=== PATIENT | female | born 1985 | race Caucasian/White ===

== ENCOUNTER → 2018-04-01 | Outpatient (REF) | payer OTHER | LOC: M SFHCLERA 20:13 | DX: R30.0 Dysuria (principal); J02.9 Acute pharyngitis, unspecified | CPT/HCPCS: 87186 ==

== ENCOUNTER → 2018-10-13 | Outpatient (REF) | payer OTHER | LOC: M SFHCLERA 20:54 | PROVIDERS: ATTEND Physician Assistant | DX: R50.9 Fever, unspecified (principal) ==

== ENCOUNTER 2019-04-10 18:00 | Emergency (ER) | payer OTHER ==
[~2019-04-10] VITALS: Ht 165.1 cm; Wt 85.3 kg
[2019-04-10] MEDS ORDERED: BUPR8SUB SL (18:46)
[2019-04-10 18:59] LABS: BASO % 0.3 % (0.0-1.0); EOS # 0.1 10^3/uL (0.0-0.5); EOS % 1.5 % (0.0-3.0); HEMATOCRIT 37.8 % (36.0-47.0); HEMOGLOBIN 12.7 g/dl (12.0-15.5); LYMPH # 1.4 10^3/uL (1.5-5.0); MEAN CORPUSCULAR HEMOGLOBIN 32.4 pg (27.0-33.0); MEAN CORPUSCULAR HGB CONC 33.6 g/dl (32.0-36.5); MEAN CORPUSCULAR VOLUME 96.4 fl (80.0-96.0); MONO # 0.5 10^3/uL (0.0-0.8); MONO % 5.6 % (0.0-5.0); NEUTROPHILS # 6.7 10^3/uL (1.5-8.5); NEUTROPHILS % 76.3 % (36.0-66.0); PLATELET COUNT, AUTOMATED 226 10^3/uL (150-450); RED BLOOD COUNT 3.92 10^6/uL (4.00-5.40); WHITE BLOOD COUNT 8.9 10^3/uL (4.0-10.0)
[2019-04-10 19:42] LABS: ALBUMIN 3.9 GM/DL (3.2-5.2); ALT/SGPT 19 U/L (12-78); BILIRUBIN,DIRECT 0.1 MG/DL (0.0-0.2); BILIRUBIN,TOTAL 0.3 MG/DL (0.2-1.0); BLOOD UREA NITROGEN 7 MG/DL (7-18); CALCIUM LEVEL 9.4 MG/DL (8.5-10.1); CARBON DIOXIDE LEVEL 27 MEQ/L (21-32); CHLORIDE LEVEL 106 MEQ/L (98-107); CREATININE FOR GFR 0.65 MG/DL (0.55-1.30); GLOMERULAR FILTRATION RATE > 60.0 (>60); GLUCOSE, FASTING 118 MG/DL (70-100); HCG, SERUM QUANTITATIVE 20698 MIU/ML; LIPASE 52 U/L (73-393); POTASSIUM SERUM 4.2 MEQ/L (3.5-5.1); SODIUM LEVEL 139 MEQ/L (136-145); TOTAL PROTEIN 7.2 GM/DL (6.4-8.2)
--- NOTE | 2019-04-10 20:48 | REPVR ---
PROCEDURE INFORMATION: Exam: US First Trimester, Transabdominal Exam date and time: 04/10/2019 8:28 PM Age: 33 years old Clinical history: complicated by abdominal or pelvic pain; Lower; First trimester; Gestational age or lmp: Unknown; ; Additional info: Pelvic cramping TECHNIQUE: Imaging protocol: Real-time transabdominal obstetrical ultrasound of the maternal pelvis and a first trimester , less than 14 weeks 0 days, with image documentation. COMPARISON: No relevant prior studies available. FINDINGS: GESTATION: Gestation: Single gestational sac within the uterus. Single fetus within the gestational sac. Fetus demonstrates diffuse subcutaneous edema. Impression Heart rate: heart rate was not detected. Placenta: Unremarkable. No subchorionic bleed. Amniotic fluid: Amniotic and chorionic fluid are normal for gestational age. BIOMETRY: Estimated gestational age: Gestational age is 10 weeks 5 days using crown-rump length versus 18 weeks one day using LMP. [place]-Rump length: [place]-rump length measures 3.8 cm. MATERNAL: Uterus: Unremarkable. Cervix: Unremarkable. Right adnexa: Unremarkable. Left adnexa: Unremarkable. Intraperitoneal: No intraperitoneal free fluid. IMPRESSION: Findings consistent with an intrauterine demise with retention of the fetus occurring at 10 weeks 5 days in this patient who was 18 weeks 1 day using LMP. Electronically signed by: Emile Joseph On 04/10/2019 20:48:29 PM
[2019-04-10 21:35] VITALS: BP 153/85
== END 2019-04-10 21:36 | disposition home or self-care (01) ==
LOC: M ED 18:00
DX: O03.9 Complete or unspecified spontaneous abortion without complication (principal); Z88.1 Allergy status to other antibiotic agents; Z79.899 Other long term (current) drug therapy

== ENCOUNTER → 2019-04-22 | Outpatient (CLI) | payer OTHER ==
[~2019-04-22] MED LIST: BUPR8SUB SL
--- NOTE | 2019-04-22 14:53 | REP ---
PELVIC ULTRASOUND: Real-time sonographic evaluation of the pelvis is performed utilizing transabdominal technique. Intrauterine gestation is again noted. Gestational sac contains a fetus with a crown-rump length of 35 mm which would correspond to an estimated gestational age of 10 weeks 3 days. However, no heart motion is identified, consistent with intrauterine demise. This is similar to the prior study of 04/10/2019. No subchorionic hemorrhage or maternal adnexal region abnormality is seen. Unreviewed
== END ==
LOC: M RAD 13:53
PROVIDERS: ATTEND Obstetrics & Gynecology
DX: O02.1 Missed abortion (principal); Z3A.00 Weeks of gestation of pregnancy not specified

== ENCOUNTER 2019-04-23 12:35 | Day surgery (SDC) | payer OTHER ==
[~2019-04-23] VITALS: Ht 165.1 cm; Wt 83.4 kg
[~2019-04-23 12:35] MED LIST changes: +ACETAMINOPHEN 650 MG SUPP PR ONE; +KETOROLAC 60 MG/2 ML VIAL (J1885) As Ordered ONE; +LIDOCAINE 1% MDV 20ML VIAL SQ PRN; +LIDOCAINE 2% INJ 100 MG/5 ML SDV (FOR ANES.) As Ordered ONE; +LR 1,000 ML IV ONE; +ONDANSETRON 4MG/2ML VIAL (J2405) As Ordered ONE; +PROPOFOL 200 MG/20 ML VIAL As Ordered ONE; +dexameTHASONE 4 MG/ML 1ML VIAL (J1100) As Ordered ONE
[2019-04-23] MEDS ORDERED: GLYCOPYRROLATE INJ 0.2 MG/ML 2 ML VIAL As Ordered ONE (12:43)
[2019-04-23 13:27] LABS: HEMATOCRIT 36.9 % (36.0-47.0); HEMOGLOBIN 12.3 g/dl (12.0-15.5); MEAN CORPUSCULAR HEMOGLOBIN 31.7 pg (27.0-33.0); MEAN CORPUSCULAR HGB CONC 33.3 g/dl (32.0-36.5); MEAN CORPUSCULAR VOLUME 95.1 fl (80.0-96.0); PLATELET COUNT, AUTOMATED 244 10^3/uL (150-450); RED BLOOD COUNT 3.88 10^6/uL (4.00-5.40); WHITE BLOOD COUNT 6.1 10^3/uL (4.0-10.0)
[2019-04-23] MEDS ORDERED: CLINDAMYCIN 900 MG in IV 1 EA IV ONE (13:30)
[2019-04-23 14:04] LABS: BLOOD UREA NITROGEN 8 MG/DL (7-18); CALCIUM LEVEL 9.8 MG/DL (8.5-10.1); CARBON DIOXIDE LEVEL 26 MEQ/L (21-32); CHLORIDE LEVEL 106 MEQ/L (98-107); GLOMERULAR FILTRATION RATE > 60.0 (>60); GLUCOSE, FASTING 90 MG/DL (70-100); HCG, SERUM QUANTITATIVE 2643 MIU/ML; SODIUM LEVEL 141 MEQ/L (136-145)
[2019-04-23] MEDS ORDERED: PROPOFOL 200 MG/20 ML VIAL As Ordered ONE (14:13)
[2019-04-23] MEDS ORDERED: MIDAZOLAM INJ 2 MG/2 ML VIAL (J2250) As Ordered ONE (14:13)
[2019-04-23] MEDS ORDERED: LIDOCAINE 2% INJ 100 MG/5 ML SDV (FOR ANES.) As Ordered ONE (14:13)
[2019-04-23] MEDS ORDERED: fentaNYL 100 MCG/2 ML INJECTION (J3010) As Ordered ONE (14:14)
[2019-04-23] MEDS ORDERED: KETOROLAC 60 MG/2 ML VIAL (J1885) As Ordered ONE ×2 (14:41→15:08)
[2019-04-23] MEDS ORDERED: dexameTHASONE 4 MG/ML 1ML VIAL (J1100) As Ordered ONE (14:41)
[2019-04-23] MEDS ORDERED: ONDANSETRON 4MG/2ML VIAL (J2405) As Ordered ONE (14:41)
[2019-04-23] MEDS ORDERED: ACETAMINOPHEN 650 MG SUPP As Ordered ONE (14:44)
[2019-04-23] MEDS ORDERED: OXYTOCIN INJ 10 UNITS/ML VIAL (J2590) As Ordered ONE ×2 (14:48→14:50)
[2019-04-23] MEDS ORDERED: ePHEDrine SULFATE 25 MG/5 ML(5MG/ML) SYRINGE As Ordered ONE (14:53)
[2019-04-23] MEDS ORDERED: ACETAMINOPHEN 1000MG 100ML IV BTL (OFIRMEV) (J0131 PER 10MG) As Ordered ONE (14:54)
[2019-04-23] MEDS ORDERED: PHENYLephrine HCL 500 MCG/5 ML (100MCG/ML) SYRINGE (J2370) As Ordered ONE (14:59)
[2019-04-23] MEDS ORDERED: miSOPROStol 200 MCG TAB (S0191) As Ordered ONE (15:04)
[2019-04-23] MEDS ORDERED: METOCLOPRAMIDE INJ 10MG/2ML VIAL (J2765) IV PRN (15:30)
[2019-04-23] MEDS ORDERED: LR 1,000 ML IV SCH (15:30)
[2019-04-23] MEDS ORDERED: ONDANSETRON 4MG/2ML VIAL (J2405) IV PRN (15:30)
[2019-04-23] MEDS: oxyCODONE 5MG TAB PO PRN ×2 (15:45→18:18)
[2019-04-23] MEDS: fentaNYL 100 MCG/2 ML INJECTION (J3010) IV PRN ×2 (15:45→15:50)
[2019-04-23] MEDS ORDERED: oxyCODONE 5MG TAB As Ordered ONE (18:15)
[2019-04-23 19:20] VITALS: BP 130/76
--- NOTE | 2019-04-23 19:24 | RO ---
DATE OF PROCEDURE: 04/23/2019 PREOPERATIVE DIAGNOSIS: demise 10 weeks. POSTOPERATIVE DIAGNOSIS: demise 10 weeks. OPERATION PROPOSED: Suction curettage. OPERATION PERFORMED: Suction curettage plus cervical biopsy. ANESTHESIA: General. ESTIMATED BLOOD LOSS: 600 mL SURGEON: Dr. Castillo After adequate time-out, prepped and draped in the lithotomy position antibiotics in place as this is a prolonged demise starting back to December. Weighted speculum in at the bladder was drained for clear urine. Single-tooth tenaculum to the anterior lip of the cervix, we noticed a large endocervical polyp was present. This was biopsied off and sent off to pathology under separate cover. The uterus was then sounded depth of 16 cm dilated to a Emely 9. Curved suction curette applied. Curettage revealed placenta and parts. Uterus was curettaged til smooth. The uterus had difficulty in megan down under Pitocin and therefore she was given Cytotec 800 mg per rectum. Eventually the uterus did contract down well, continued on with Pitocin. Uterus was replaced in anatomical position well put contracted at the end of procedure. The patient is Rh positive does not require RhoGAM was sent to recovery in good condition.
[2019-04-23] MEDS ORDERED: KETOROLAC 30 MG/ML VIAL (J1885) IV PRN (21:00)
== END 2019-04-23 19:20 | disposition home or self-care (01) ==
LOC: M SDC 12:35
PROVIDERS: ATTEND Obstetrics & Gynecology
DX: O02.1 Missed abortion (principal); N84.1 Polyp of cervix uteri; F17.218 Nicotine dependence, cigarettes, with other nicotine-induced disorders; Z79.899 Other long term (current) drug therapy; Z88.1 Allergy status to other antibiotic agents; G43.909 Migraine, unspecified, not intractable, without status migrainosus
CPT/HCPCS: 36415; 59820; 80048; 84702; 85027; 86850; 86900; 86901; 88305; J0131; J1100; J1885; J2250; J2370; J2405; J2590; J3010

== ENCOUNTER → 2019-07-17 | Outpatient (REF) | payer OTHER ==
[~2019-07-17] MED LIST changes: -ACETAMINOPHEN 650 MG SUPP PR ONE; -KETOROLAC 60 MG/2 ML VIAL (J1885) As Ordered ONE; -LIDOCAINE 1% MDV 20ML VIAL SQ PRN; -LIDOCAINE 2% INJ 100 MG/5 ML SDV (FOR ANES.) As Ordered ONE; -LR 1,000 ML IV ONE; -ONDANSETRON 4MG/2ML VIAL (J2405) As Ordered ONE; -PROPOFOL 200 MG/20 ML VIAL As Ordered ONE; -dexameTHASONE 4 MG/ML 1ML VIAL (J1100) As Ordered ONE
[2019-07-18 21:56] LABS: CHLAMYDIA DNA AMPLIFICATION NEGATIVE (NEGATIVE); GC DNA AMPLIFICATION NEGATIVE (NEGATIVE)
== END ==
LOC: M SFHCLERA 20:12
PROVIDERS: ATTEND Physician Assistant
DX: N39.0 Urinary tract infection, site not specified (principal); N89.8 Other specified noninflammatory disorders of vagina
CPT/HCPCS: 81002; 87070; 87077; 87186; 87661; G0463

== ENCOUNTER 2020-07-09 20:13 | Emergency (ER) | payer OTHER ==
[~2020-07-09] VITALS: Ht 165.1 cm; Wt 72.7 kg
[2020-07-09 20:13] VITALS: BP 141/89
[2020-07-09] MEDS ORDERED: AMPH1CAP16 (20:25)
[2020-07-09] MEDS ORDERED: SPIN1SUS (20:25)
[2020-07-09] MEDS ORDERED: ALPR1TAB3 (20:25)
[2020-07-09] MEDS ORDERED: IVERMECTIN 3 MG TAB (STROMECTOL) PO ONE (21:50)
[2020-07-09] MEDS ORDERED: IVER1TAB PO (21:59)
== END 2020-07-09 22:18 | disposition home or self-care (01) ==
LOC: M ED 20:13
DX: B85.0 Pediculosis due to Pediculus humanus capitis (principal); B85.3 Phthiriasis; Z88.1 Allergy status to other antibiotic agents; Z88.8 Allergy status to other drugs, medicaments and biological substances; Z79.899 Other long term (current) drug therapy

== ENCOUNTER 2020-09-16 20:47 | Emergency (ER) | payer OTHER ==
[~2020-09-16] VITALS: Ht 165.1 cm; Wt 71.6 kg
[~2020-09-16 20:47] MED LIST changes: +ALPR1TAB3; +AMPH1CAP16; +IVER1TAB PO; +SPIN1SUS
[2020-09-16 21:15] VITALS: BP 144/78
[2020-09-16] MEDS ORDERED: PERMETHRIN 5% CREAM 60 GM TOP STA (22:30)
[2020-09-16] MEDS ORDERED: NIX CREME RINSE 1% 60 ML KIT TOP ONE (22:30)
== END 2020-09-16 22:59 | disposition home or self-care (01) ==
LOC: M ED 20:47
DX: R20.9 Unspecified disturbances of skin sensation (principal); F41.9 Anxiety disorder, unspecified; Z88.8 Allergy status to other drugs, medicaments and biological substances

== ENCOUNTER 2021-01-03 19:47 | Emergency (ER) | payer OTHER ==
[~2021-01-03] VITALS: Ht 165.1 cm; Wt 77.1 kg
[2021-01-03 19:49] VITALS: BP 133/74
[2021-01-03] MEDS ORDERED: BUSP1TAB PO (20:00)
== END 2021-01-03 21:22 | disposition left against medical advice (07) ==
LOC: M ED 19:47
DX: Z53.21 Procedure and treatment not carried out due to patient leaving prior to being seen by health care provider (principal)

== ENCOUNTER 2022-10-10 11:36 | Emergency (ER) | payer OTHER ==
[~2022-10-10] VITALS: Ht 165.1 cm; Wt 92.5 kg
[2022-10-10 11:36] VITALS: BP 154/76
[~2022-10-10 11:36] MED LIST changes: +BUSP1TAB PO
[2022-10-10] MEDS ORDERED: HYDR50CA2 (11:45)
[2022-10-10] MEDS ORDERED: IBUP200T46 PO (11:45)
[2022-10-10] MEDS ORDERED: CLON0.5T2 (11:45)
[2022-10-10] MEDS ORDERED: VENL150C43 (11:45)
[2022-10-10] MEDS ORDERED: AMOX875T (11:45)
[2022-10-10] MEDS ORDERED: PRAZ1CAP (11:45)
[2022-10-10] MEDS ORDERED: AMOX875T2 PO (13:15)
[2022-10-10] MEDS ORDERED: DIFL150T PO (13:15)
== END 2022-10-10 13:23 | disposition home or self-care (01) ==
LOC: M ED 11:36
DX: K02.9 Dental caries, unspecified (principal); F41.9 Anxiety disorder, unspecified; F17.200 Nicotine dependence, unspecified, uncomplicated; Z88.1 Allergy status to other antibiotic agents; Z79.2 Long term (current) use of antibiotics; Z79.899 Other long term (current) drug therapy

== ENCOUNTER 2024-03-08 17:18 | Emergency (ER) | payer OTHER ==
[~2024-03-08] VITALS: Ht 165.1 cm; Wt 94.2 kg
[~2024-03-08 17:18] MED LIST changes: +AMOX875T; +AMOX875T2 PO; +CLON0.5T2; +DIFL150T PO; +HYDR50CA2; +IBUP200T46 PO; +PRAZ1CAP; +VENL150C43
[2024-03-08] MEDS ORDERED: BACT800T5 PO (21:40)
[2024-03-08] MEDS ORDERED: FLUC150T9 PO (21:40)
[2024-03-08] MEDS: BACTRIM 160MG/800MG DS TAB PO ONE (21:49)
[2024-03-08 21:50] VITALS: BP 132/77; TEMP 97; O2SAT 98
== END 2024-03-08 21:50 | disposition home or self-care (01) ==
LOC: M ED 17:18
DX: L03.116 Cellulitis of left lower limb (principal); M23.92 Unspecified internal derangement of left knee; F17.200 Nicotine dependence, unspecified, uncomplicated; F12.10 Cannabis abuse, uncomplicated; F10.10 Alcohol abuse, uncomplicated; Z88.1 Allergy status to other antibiotic agents; Z79.899 Other long term (current) drug therapy; Z79.2 Long term (current) use of antibiotics